=== PATIENT | male | born 1960 | race Caucasian/White ===

== ENCOUNTER 2018-07-18 08:26 | Outpatient (CLI) | payer OTHER | END 2018-07-18 08:29 | disposition home or self-care (01) | LOC: SONOGRAMA 08:26 | DX: E04.2 Nontoxic multinodular goiter (principal) ==

== ENCOUNTER 2021-04-07 08:13 | Outpatient (CLI) | payer OTHER | END 2021-04-07 08:16 | disposition home or self-care (01) | LOC: SONOGRAMA 08:13 | PROVIDERS: ATTEND Pathology Anatomic Pathology & Clinical Pathology | DX: D34 Benign neoplasm of thyroid gland (principal); E04.2 Nontoxic multinodular goiter; E04.8 Other specified nontoxic goiter ==